=== PATIENT | male | born 1980 | race Caucasian/White ===

== ENCOUNTER → 2017-10-09 | Outpatient (CLI) | payer BC ==
--- NOTE | 2017-10-09 13:46 | RADIOLOGY REPORT (SQ) ---
EXAM DESCRIPTION: HAND RIGHT 3 VIEWS COMPLETED DATE/TIME: 10/09/2017 12:29 pm REASON FOR STUDY: PRIMARY OSTEOARTHRITIS, UNSPECIFIED HAND M19.049 PRIMARY OSTEOARTHRITIS, UNSPECIF IED HAND M54.6 PAIN IN THORACIC SPINE COMPARISON: None. EXAM PARAMETERS: NUMBER OF VIEWS: Three views. TECHNIQUE: AP, lateral and oblique radiographic images acquired of the right hand. LIMITATIONS: None. FINDINGS: MINERALIZATION: Normal. BONES: No acute fracture or malalignment. No aggressive bony erosions. Incidental finding of a nonu nited fracture, distal pole of the right scaphoid bone extending to the scaphotrapezium joint. No ev idence of avascular necrosis. JOINTS: No effusions. SOFT TISSUES: No soft tissue swelling. No foreign body. OTHER: No other significant finding. IMPRESSION: No focal bony findings at the 2nd metacarpophalangeal joint Incidental finding of a nonunited chip off the distal aspect scaphoid bone common no evidence of avas cular necrosis TECHNICAL DOCUMENTATION: JOB ID: [id number] [employer]- All Rights Reserved Reading location - IP/workstation name: [email or web address]
--- NOTE | 2017-10-09 13:48 | RADIOLOGY REPORT (SQ) ---
EXAM DESCRIPTION: T SPINE AP/LAT COMPLETED DATE/TIME: 10/09/2017 12:29 pm REASON FOR STUDY: PAIN IN THORACIC SPINE M19.049 PRIMARY OSTEOARTHRITIS, UNSPECIFIED HAND M54.6 PA IN IN THORACIC SPINE COMPARISON: None. NUMBER OF VIEWS: Two views. TECHNIQUE: AP and lateral radiographic images acquired of the thoracic spine. LIMITATIONS: None. FINDINGS: MINERALIZATION: Normal. ALIGNMENT: Normal. No scoliosis. VERTEBRAE: No fracture or bone lesion. Maintained height, normal segmentation. DISCS: No significant loss of height or significant narrowing. No large osteophytes. HARDWARE: None in the spine. MEDIASTINUM AND SOFT TISSUES: Normal heart size and aortic contour. No soft tissue abnormality. VISUALIZED LUNG MATHEW: Clear. OTHER: No other significant finding. IMPRESSION: NO SIGNIFICANT RADIOGRAPHIC FINDING IN THE THORACIC SPINE. TECHNICAL DOCUMENTATION: JOB ID: [id number] [employer]- All Rights Reserved Reading location - IP/workstation name: [email or web address]
== END ==
LOC: OD 12:06
PROVIDERS: ATTEND Family Medicine
DX: M19.041 Primary osteoarthritis, right hand (principal); M54.6 Pain in thoracic spine
CPT/HCPCS: 72070

== ENCOUNTER → 2018-09-17 | Outpatient (CLI) | payer BC ==
--- NOTE | 2018-09-17 09:27 | RADIOLOGY REPORT (SQ) ---
EXAM DESCRIPTION: CLAVICLE RIGHT COMPLETED DATE/TIME: 09/17/2018 8:57 am REASON FOR STUDY: DISP FX OF SHAFT OF RIGHT CLAVICLE, SUBS FOR FX W ROUTN HEAL COMPARISON: None. NUMBER OF VIEWS: Two views right clavicle. LIMITATIONS: None. FINDINGS: At the junction of the middle and distal thirds of the right clavicle, there is a mildly c omminuted non angulated nondisplaced fracture. Significant bridging callus is not suggested. AC roque nt intact. Remaining bones intact. Clear right lung apex. OTHER: No other significant finding. IMPRESSION: Nondisplaced right clavicular fracture. TECHNICAL DOCUMENTATION: JOB ID: [id number] Reading location - IP/workstation name: [email or web address]
== END ==
LOC: OD 08:36
PROVIDERS: ATTEND Family Medicine
DX: S42.034D Nondisplaced fracture of lateral end of right clavicle, subsequent encounter for fracture with routine healing (principal); X58.XXXD Exposure to other specified factors, subsequent encounter

== ENCOUNTER 2019-07-08 09:57 | Emergency (ER) | payer BC ==
[2019-07-08 10:05] VITALS: BP 126/77
--- NOTE | 2019-07-08 10:12 | ER Document Report ---
ED Hand/Wrist Injury - General Chief Complaint: Finger Injury Stated Complaint: FINGER INJURY Time Seen by Provider: 07/08/19 10:02 Primary Care Provider: GUILLE BARRETT MD [Primary Care Provider] - Follow up in 3-5 days Mode of Arrival: Ambulatory Information source: Patient Notes: 38-year-old male presented to ED for complaint of a small laceration to the left middle finger at the end of the finger. He states he was cutting a piece of metal at home when it slipped cutting his finger. Patient is alert oriented respirations regular and unlabored speaking in full sentences. Patient states his tetanus is not up-to-date but adamantly refuses a tetanus immunization at this time. He states this was a clean piece of metal that he was cutting and does not feel he has any risk at this time. Patient states he does not want an x-ray at this time. TRAVEL OUTSIDE OF THE [place] IN LAST 30 DAYS: Yes - HPI Injury to: Middle finger - Left Onset: Just prior to arrival Where: Home, Outdoors Timing: Still present Quality of pain: Sharp Severity: Mild Pain Level: 2 Context: Laceration - 1 cm very superficial laceration to the last joint left middle finger - Related Data Allergies/Adverse Reactions: amoxicillin Allergy (Verified 07/08/19 10:05) Past Medical History - General Information source: Patient - Social History Smoking Status: Never Smoker Frequency of alcohol use: None Drug Abuse: None Lives with: Family Family History: Reviewed & Not Pertinent Patient has suicidal ideation: No Patient has homicidal ideation: No - Past Medical History Cardiac Medical History: Reports: None Pulmonary Medical History: Reports: Hx Asthma Neurological Medical History: Reports: None Endocrine Medical History: Reports: None Renal/ Medical History: Reports: None Malignancy Medical History: Reports None GI Medical History: Reports: None Musculoskeletal Medical History: Reports Hx Musculoskeletal Trauma Skin Medical History: Reports None Psychiatric Medical History: Reports: None Traumatic Medical History: Reports: Hx Fractures - Bilateral clavicle Infectious Medical History: Reports: None Past Surgical History: Reports: Hx Appendectomy - Immunizations Immunizations up to date: No Hx Diphtheria, Pertussis, Tetanus Vaccination: No Review of Systems - Review of Systems Constitutional: No symptoms reported EENT: No symptoms reported Cardiovascular: No symptoms reported Respiratory: No symptoms reported Gastrointestinal: No symptoms reported Genitourinary: No symptoms reported Male Genitourinary: No symptoms reported Musculoskeletal: No symptoms reported Skin: Other - Superficial 1 cm laceration to the left third finger Hematologic/Lymphatic: No symptoms reported Neurological/Psychological: No symptoms reported Physical Exam - Vital signs Vitals: Temp Pulse Resp BP Pulse Ox 98.6 F 75 16 126/77 H 98 07/08/19 10:04 07/08/19 10:04 07/08/19 10:04 07/08/19 10:04 07/08/19 10:04 Interpretation: Normal - General General appearance: Appears well, Alert - HEENT Head: Normocephalic, Atraumatic Eyes: Normal Pupils: PERRL - Respiratory Respiratory status: No respiratory distress Chest status: Nontender Breath sounds: Normal Chest palpation: Normal - Cardiovascular Rhythm: Regular Heart sounds: Normal auscultation Murmur: No - Abdominal Inspection: Normal Distension: No distension Bowel sounds: Normal Tenderness: Nontender Organomegaly: No organomegaly - Back Back: Normal, Nontender - Extremities General upper extremity: Normal inspection, Nontender, Normal color, Normal ROM, Normal temperature General lower extremity: Normal inspection, Nontender, Normal color, Normal ROM, Normal temperature, Normal weight bearing. No: Carloz's sign - Neurological Neuro grossly intact: Yes Cognition: Normal Orientation: AAOx4 [place] Coma Scale Eye Opening: Spontaneous [place] Coma Scale Verbal: Oriented [place] Coma Scale Motor: Obeys Commands [place] Coma Scale Total: 15 Speech: Normal Motor strength normal: LUE, RUE, LLE, RLE Sensory: Normal - Psychological Associated symptoms: Normal affect, Normal mood - Skin Skin Temperature: Warm Skin Moisture: Dry Skin Color: Normal Skin irregularity: Laceration - 1 cm superficial laceration to the left third finger Course - Re-evaluation Re-evalutation: 07/08/19 10:19 Patient refused tetanus immunization status tetanus is not up-to-date but adamantly refused to have an injection. He also adamantly refused to have an x- ray of the finger even though he was cutting metal when he cut his finger. He states he knows he got it all out and he does not need an x-ray. He states he just wanted his wound repaired. - Vital Signs Vital signs: Temp Pulse Resp BP Pulse Ox 98.6 F 75 16 126/77 H 98 07/08/19 10:04 07/08/19 10:04 07/08/19 10:04 07/08/19 10:04 07/08/19 10:04 Procedures - Laceration/Wound Repair Left Finger 3rd digit Time completed: 10:17 Wound length (cm): 1 Wound's Depth, Shape: Superficial Laceration pre-procedure: Sterile PPE donned Anesthetic type: Other - 0 Volume Anesthetic (mLs): 0 Wound Repaired With: Dermabond Post-procedure wound care: Splint applied Post-procedure NV exam normal: Yes Complications: No Discharge - Discharge Clinical Impression: Laceration of left middle finger Qualifiers: Encounter type: initial encounter Damage to nail status: without damage Foreign body presence: without foreign body Qualified Code(s): S61.213A - Laceration without foreign body of left middle finger without damage to nail, initial encounter Condition: Stable Disposition: HOME, SELF-CARE Additional Instructions: NON-SUTURED LACERATION: Your laceration did not require suturing. Some lacerations cannot be sutured because of increased infection risk, while others simply don't need stitches because they are shallow or very short. Your injury should be protected while it heals. Usually complete healing takes 10 to 14 days. Keep the dressing clean and dry, and change it every day. If you notice increasing pain, redness, swelling, drainage, or tender lumps in the armpit or groin above the injury, infection may be present. You should call the doctor at once. SOAP CLEANSING: Gently wash the wound daily using a mild soap (like Ivory, Phisoderm, Neutrogena). Use warm water, rubbing gently until all debris, ooze, and crusting have been washed from the wound. Allow to dry briefly (about 10 minutes) after cleaning. Repeat this cleansing at least three times a day for the first two days and then once or twice a day. ANTIBIOTIC OINTMENT PROTECTION: Your wounds are such that dressing them is not practical or optional. After cleansing, you should apply a thin coating of antibiotic ointment (Bacitracin, not Neosporin) to the wounds at least three times daily. This lessens infection risk, and may decrease the amount of scarring. Use a q-tip or dull butter knife, not your finger, to apply this ointment. Any debris or ooze which builds up in the ointment should be gently rubbed off with a sterile gauze pad. Harder crusting may need to be gently scrubbed off with a clean wash cloth with soap and warm water, perhaps applying a warm, wet wash cloth to the wound for ten minutes first. Development of redness, severe itching, or blistering may mean allergy to the ointment. See the doctor. Please leave this finger splint on your finger for about 4 days. Remove the splint each day clean the finger picking on the glue and then return the splint FOLLOW-UP CARE: Please return in __3-5___ days for an infection check and dressing change. If you have been referred to another physician for follow-up care, call that physicians office for an appointment as you were instructed. If you experience a significant change in your laceration, or if you are concerned there may be an infection (swelling, redness, drainage, increasing tenderness, red streaks, tender lumps in the armpit or groin above the laceration, or fever), return to the Emergency Department immediately re-evaluation. Forms: Elevated Blood Pressure Referrals: GUILLE BARRETT MD [Primary Care Provider] - Follow up in 3-5 days
== END 2019-07-08 10:12 | disposition home or self-care (01) ==
LOC: ER 09:57
DX: S61.213A Laceration without foreign body of left middle finger without damage to nail, initial encounter (principal); W45.8XXA Other foreign body or object entering through skin, initial encounter; Y93.89 Activity, other specified; Y92.009 Unspecified place in unspecified non-institutional (private) residence as the place of occurrence of the external cause; J45.909 Unspecified asthma, uncomplicated; Z88.0 Allergy status to penicillin
CPT/HCPCS: 99282

== ENCOUNTER → 2019-12-22 | Outpatient (CLI) | payer BC ==
--- NOTE | 2019-12-23 10:55 | RADIOLOGY REPORT (SQ) ---
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 TECHNIQUE: Multiplanar imaging includes non-contrasted T1, T2, FLAIR, and diffusion with ADC map seq uences. Images stored on PACS. LIMITATIONS: None. FINDINGS: The gregory hilario contains marrow. The corpus callosum, sella turcica, and craniocervical junction are normal in appearance. There is no restricted diffusion on the DWI. There is no T2/FLAIR signal abnormality or susceptibility artifact. There is no acute intracranial hemorrhage, extra-axial fluid collection, vasogenic edema, mass effect or midline shift. The sequeira-white matter differentiation is preserved. There is no effacement of th e cerebral sulci or basal subarachnoid cisterns. The caliber of the ventricles is concordant with th e degree of sulcation; there is no ventriculomegaly. The intracranial vascular flow voids are preserved. There is a probable mucous retention cyst within the left maxillary sinus. There is no gross abnormality of the cerebellopontine angles or abnormal signal within the IACs. IMPRESSION: No acute intracranial abnormality. EVIDENCE OF ACUTE STROKE: NO. TECHNICAL DOCUMENTATION: JOB ID: [id number] [employer]- All Rights Reserved Reading location - IP/workstation name: [email or web address]
== END ==
LOC: RAD 17:53
PROVIDERS: ATTEND Nurse Practitioner Family
DX: G44.52 New daily persistent headache (NDPH) (principal)
CPT/HCPCS: 70551